=== PATIENT | male | born 1940 | race Caucasian/White ===

== ENCOUNTER 2019-08-10 14:19 | Observation (INO) ==
[2019-08-10] MEDS ORDERED: MORPHINE SULFATE 4 MG/1 ML IVP ONE ×2 (14:42→18:21)
[2019-08-10] MEDS ORDERED: ONDANSETRON 4 MG/2 ML VIAL IVP ONE (14:43)
[2019-08-10] MEDS ORDERED: HYDROmorphone 2 MG/1 ML IVP PRN (18:50)
[2019-08-10] MEDS ORDERED: ONDANSETRON 4 MG/2 ML VIAL IVP PRN (18:50)
[2019-08-10] MEDS ORDERED: LIDOCAINE W/ SODIUM BICARB 0.5 ML SYR SUBD PRN (18:50)
[2019-08-10] MEDS ORDERED: ACETAMINOPHEN 325 MG TABLET PO PRN (18:50)
[2019-08-10] MEDS ORDERED: HEPARIN 5000 UNIT/1 ML SUBCUT SCH (18:50)
[2019-08-10] MEDS ORDERED: DOCUSATE 100 MG CAPSULE PO PRN (18:50)
[2019-08-10] MEDS ORDERED: CALCIUM CARBONATE 500 MG (TUMS) CHEWABLE TABLET PO PRN (18:50)
[2019-08-10] MEDS ORDERED: oxyCODONE-ACETAMINOPHEN 5-325 TAB PO SCH (18:50)
[2019-08-10] MEDS: KETOROLAC 15 MG/1 ML VIAL IVP PRN (19:18)
[2019-08-10] MEDS ORDERED: MORPHINE SULFATE 2 MG/1 ML IVP PRN (20:14)
[2019-08-10] MEDS ORDERED: Ropinirole Tab 0.25 MG TAB PO SCH (21:00)
[2019-08-11] MEDS: MORPHINE SULFATE 2 MG/1 ML IVP PRN ×3 (01:01→09:21)
[2019-08-11 10:48] LABS: BASOPHILS # (AUTO) 0.01 10*3/UL; BASOPHILS % (AUTO) 0.2 % (0-1); EOSINOPHILS # (AUTO) 0.05 10*3/UL; EOSINOPHILS % (AUTO) 0.9 % (0-8); Hematocrit [HCT] 42.4 % (42.0-52.0); Hemoglobin [HGB] 13.7 g/dL (14.0-18.0); LYMPHOCYTES # (AUTO) 1.04 10*3/uL; MEAN CORPUSCULAR HGB CONC 32.3 g/dL (33-37); MEAN CORPUSCULAR VOLUME 87.8 FL (80-90); MEAN PLATELET VOLUME 9.9 FL (7.4-12.2); MONOCYTES # (AUTO) 0.62 10*3/UL (0.3-0.8); MONOCYTES % (AUTO) 10.8 % (5-15); NEUTROPHILS # (AUTO) 3.28 10*3/UL; RED BLOOD COUNT 4.83 10^6/uL (4.70-6.10)
[2019-08-11 11:04] LABS: BLOOD UREA NITROGEN 16 mg/dL (7-22); BUN/CREATININE RATIO 22.85 (6-20); SERUM ALBUMIN 3.8 g/dL (3.5-4.8)
[2019-08-11 11:07] LABS: PLATELET MORPHOLOGY COMMENT NORMAL MORPHOLOGY (NORM); RBC MORPHOLOGY COMMENT NORMAL MORPHOLOGY (NORM); WBC MORPHOLOGY COMMENT NORMAL MORPHOLOGY (NORM)
[2019-08-11] MEDS: KETOROLAC 15 MG/1 ML VIAL IVP PRN ×2 (14:10→20:16)
[2019-08-11] MEDS ORDERED: DOCUSATE 100 MG CAPSULE PO PRN (16:22)
[2019-08-11] MEDS: CHOLECALCIFEROL (VITAMIN D3) 5,000 IU CAPSULE PO SCH (16:27)
[2019-08-11] MEDS: Acetaminophen 1000mg Inj 1,000 MG/100 ML VIAL IV PRN (16:27)
[2019-08-11] MEDS: HEPARIN 5000 UNIT/1 ML SUBCUT SCH (17:59)
[2019-08-12] MEDS: HEPARIN 5000 UNIT/1 ML SUBCUT SCH ×2 (00:03→09:46)
[2019-08-12] MEDS: KETOROLAC 15 MG/1 ML VIAL IVP PRN ×3 (01:34→13:56)
[2019-08-12] MEDS: Acetaminophen 1000mg Inj 1,000 MG/100 ML VIAL IV PRN ×2 (04:02→12:16)
[2019-08-12 06:45] VITALS: O2SAT 92
[2019-08-12] MEDS: CHOLECALCIFEROL (VITAMIN D3) 5,000 IU CAPSULE PO SCH (09:46)
[2019-08-12 12:13] VITALS: BP 166/68; RESP 20; TEMP 98.6
== END 2019-08-12 16:57 | disposition home or self-care (01) ==
LOC: ER 14:19 → MED/SURG 14:19
PROVIDERS: ADMIT Internal Medicine; ATTEND Internal Medicine